=== PATIENT | male | born 1975 | race Caucasian/White ===

== ENCOUNTER 2021-09-08 13:09 | Inpatient (IN) ==
[2021-09-08 17:55] LABS: Basophils # 0.1 10*3/uL (0.0-0.2); Basophils % 0.4 % (0.0-0.8); Eosinophils # 0.5 10*3/uL (0.0-0.87); Eosinophils % 3.1 % (0.00-10.9); Hematocrit 45.2 VOL% (42.0-52.0); Hemoglobin 14.9 GM/DL (14.0-18.0); Immature Granulocytes % 1.5 %; Immature Granulocytes Absolute 0.24 #; Lymphocytes # 2.3 10*3/uL (1.4-4.0); Lymphocytes % 14.8 % (21.2-54.2); Mean Corpuscular Volume 86.3 FL (87-102); Mean Platelet Volume 9.8 FL (9.6-12.0); Monocytes % 7.4 % (1.7-12.7); Neutrophils % 72.8 % (38.7-73.9); Platelet Count 433 T/CUMM (130-400); Red Blood Count 5.24 MC/CUMM (3.8-5.5); Red Cell Distribution Width 13.5 % (9.3-17.3); White Blood Count 15.7 T/CUMM (4-12)
[2021-09-08 18:13] LABS: Alanine Aminotransferase 17 U/L (16-61); Albumin 3.5 G/DL (3.4-5.0); Alkaline Phosphatase 104 U/L (45-117); Aspartate Amino Transferase 6 U/L (0-37); Bilirubin,Total < 0.39 MG/DL (0.20-1.00); Blood Urea Nitrogen 7 MG/DL (7-18); Calcium 9.4 MG/DL (8.5-10.1); Carbon Dioxide 23 MMOL/L (21-32); Estimated Glom Filtration Rate 123 ML/MIN; Glucose 106 MG/DL (74-106); Osmolality,Calculated 270.8 MOS/KG (273-304); Potassium 3.7 MMOL/L (3.5-5.1); Sodium 137 MMOL/L (136-145); Total Protein 8.5 G/DL (6.4-8.2)
[2021-09-08] MEDS ORDERED: VANCOMYCIN INJ 1,500 MG in SODIUM CHLORIDE 0.9% 500 ML IV STA (18:16)
[2021-09-08] MEDS ORDERED: PIPERACILLIN/TAZOBACTAM 3,375 MG in SODIUM CHLORIDE 0.9% 100 ML IV STA (18:16)
[2021-09-08 19:18] LABS: Sedimentation Rate-Westergren 29 MM/HR (0-15)
[2021-09-08] MEDS ORDERED: GLUCAGON 1 MG VIAL IM PRN (20:29)
[2021-09-08] MEDS ORDERED: ONDANSETRON 4 MG/2 ML VIAL IV PRN (20:39)
[2021-09-08] MEDS ORDERED: DEXTROSE 50% 25 GM/50 ML SYRINGE IV PRN (20:44)
[2021-09-08] MEDS ORDERED: IBUPROFEN 400 MG TABLET PO PRN (20:46)
[2021-09-08] MEDS ORDERED: ENOXAPARIN 40 MG/0.4 ML SYRINGE SUBCUT SCH (21:00)
[2021-09-08] MEDS ORDERED: LOSARTAN 50 MG TABLET PO SCH (21:00)
[2021-09-08] MEDS: busPIRone 15 MG TABLET PO SCH (22:07)
[2021-09-08] MEDS: SODIUM CHLORIDE 0.9% 1,000 ML IV SCH (22:07)
[2021-09-09] MEDS: PIPERACILLIN/TAZOBACTAM 3,375 MG in SODIUM CHLORIDE 0.9% 100 ML IV SCH ×2 (05:06→15:03)
[2021-09-09 05:17] LABS: Basophils # 0.1 10*3/uL (0.0-0.2); Basophils % 0.8 % (0.0-0.8); Eosinophils # 0.5 10*3/uL (0.0-0.87); Eosinophils % 3.8 % (0.00-10.9); Hematocrit 42.3 VOL% (42.0-52.0); Hemoglobin 13.7 GM/DL (14.0-18.0); Immature Granulocytes % 1.8 %; Immature Granulocytes Absolute 0.23 #; Lymphocytes # 2.7 10*3/uL (1.4-4.0); Lymphocytes % 21.1 % (21.2-54.2); Mean Corpuscular HGB Conc 32.4 GM/DL (32-36); Mean Corpuscular Volume 87.4 FL (87-102); Mean Platelet Volume 9.8 FL (9.6-12.0); Monocytes % 9.4 % (1.7-12.7); Neutrophils % 63.1 % (38.7-73.9); Platelet Count 374 T/CUMM (130-400); Red Blood Count 4.84 MC/CUMM (3.8-5.5); Red Cell Distribution Width 13.7 % (9.3-17.3); White Blood Count 12.7 T/CUMM (4-12)
[2021-09-09 05:35] LABS: Calcium 8.7 MG/DL (8.5-10.1); Osmolality,Calculated 278.3 MOS/KG (273-304); Potassium 3.5 MMOL/L (3.5-5.1)
[2021-09-09] MEDS: busPIRone 15 MG TABLET PO SCH ×2 (08:52→15:03)
[2021-09-09] MEDS ORDERED: PANTOPRAZOLE 40 MG TABLET PO SCH (09:00)
[2021-09-09] MEDS ORDERED: amLODIPine 10 MG TABLET PO SCH (09:00)
[2021-09-09] MEDS ORDERED: VANCOMYCIN INJ 1,000 MG in SODIUM CHLORIDE 0.9% 250 ML IV SCH (09:00)
[2021-09-09 11:51] VITALS: BP 120/85
[2021-09-09] MEDS: SODIUM CHLORIDE 0.9% 1,000 ML IV SCH (15:03)
== END 2021-09-09 15:00 | disposition home or self-care (01) | DRG 571 ==
LOC: N.ED 13:09 → N.EDINP 20:29 → N.3E 21:33
PROVIDERS: ADMIT Internal Medicine; ATTEND Internal Medicine